=== PATIENT | male | born 1955 | race Caucasian/White ===

== ENCOUNTER 2021-03-08 08:24 | Outpatient (CLI) | payer OTHER ==
[~2021-03-08] VITALS: Ht 167.6 cm; Wt 90.7 kg
[2021-03-08 08:46] LABS: TOTAL HEMOGLOBIN 16.3 G/dl (14.0-18.0)
[2021-03-08] MEDS ORDERED: albuterol 2.5 MG/3 ML nebule NEB ONE (09:56)
== END 2021-03-08 23:59 | disposition home or self-care (01) ==
LOC: RT 08:24
PROVIDERS: ATTEND Family Medicine
DX: R94.2 Abnormal results of pulmonary function studies (principal)
CPT/HCPCS: 85018; 94060; 94727; 94729; 94760